=== PATIENT | female | born 1970 | race Caucasian/White ===

== ENCOUNTER 2018-12-09 13:08 | Emergency (ER) | payer SELFPAY ==
[2018-12-09] MEDS ORDERED: Dexamethasone 10 MG/ML VIAL ONE (13:25)
--- NOTE | 2018-12-09 13:40 | RAD ---
XR Chest 1 View HISTORY: Cough, shortness of breath COMPARISON: None FINDINGS: The heart size is normal. The lungs are well expanded without focal areas of consolidation, pneumothorax or pleural effusions. IMPRESSION: No radiographic evidence of acute cardiopulmonary process.
[2018-12-09] MEDS ORDERED: Ketorolac Tromethamine 60 MG/2 ML VIAL ONE (14:26)
== END 2018-12-09 15:02 | disposition home or self-care (01) ==
LOC: ERS 13:08
DX: J45.901 Unspecified asthma with (acute) exacerbation (principal); I10 Essential (primary) hypertension; K31.84 Gastroparesis; G62.9 Polyneuropathy, unspecified; F17.210 Nicotine dependence, cigarettes, uncomplicated; F41.9 Anxiety disorder, unspecified; F32.9 Major depressive disorder, single episode, unspecified; Z79.899 Other long term (current) drug therapy
CPT/HCPCS: 71045; 94640; 96372; J1100; J1885; J7620

== ENCOUNTER 2019-03-24 08:30 | Emergency (ER) | payer OTHER, BC ==
[2019-03-24 08:59] LABS: #Basophils 0.1 thou/uL (0.0-0.2); #Eosinphils 0.3 thou/uL (0.0-0.7); #Lymphocytes 4.3 thou/uL (1.20-3.40); #Monocytes 0.8 thou/uL (0.11-0.59); #Neutrophils 6.1 thou/uL (1.40-6.50); %Basophils 0.7 % (0.0-1.0); %Eosinophils 2.8 % (0.0-10.0); %Neutrophils 52.5 % (42.0-75.0); Hemoglobin 16.3 g/dL (12.0-16.0); Mean Corpuscular HGB CONC 33.7 g/dL (32.0-36.0); Mean Corpuscular Hemoglobin 28.4 pg (27.0-31.0); Mean Corpuscular Volume 84.2 fL (78.0-98.0); Mean Platelet Volume 7.1 fL (7.4-10.4); Platelet Count 377 thou/uL (130-400); RBC Distribution Width 12.4 % (11.5-14.5); Red Blood Cell (RBC) Count 5.74 mill/uL (4.20-5.40); White Blood Cell (WBC) Count 11.7 thou/uL (4.8-10.8)
[2019-03-24] MEDS ORDERED: predniSONE 20 MG TAB ONE (09:05)
--- NOTE | 2019-03-24 09:18 | RAD ---
XR Chest 1 View Portable HISTORY: Shortness of breath COMPARISON: 12/09/2018 FINDINGS: The heart size is normal. The lungs are well expanded without focal areas of consolidation, pneumothorax or pleural effusions. IMPRESSION: No radiographic evidence of acute cardiopulmonary process.
[2019-03-24 09:32] LABS: ALT (SGPT) 35 U/L (8-55); AST (SGOT) 33 U/L (5-34); Albumin 4.2 g/dL (3.5-5.0); Alkaline Phosphatase 92 U/L (40-110); Anion Gap 10 mmol/L (10-20); BUN (Urea Nitrogen) 12 mg/dL (7.0-18.7); Bilirubin, Total 0.8 mg/dL (0.2-1.2); Calc. Creatinine Clearance 0 mL/min (70-130); Calcium 9.5 mg/dL (7.8-10.44); Carbon Dioxide 28 mmol/L (22-29); Chloride 100 mmol/L (98-107); Estimated GFR-MDRD 65; Globulin 3.7 g/dL (2.4-3.5); Glucose 115 mg/dL (70-105); Potassium 3.4 mmol/L (3.5-5.1); Protein, Total 7.9 g/dL (6.0-8.3); Sodium 135 mmol/L (136-145)
[2019-03-24] MEDS ORDERED: Acetaminophen 500 MG TAB ONE ×2 (10:24→10:25)
[2019-03-24] MEDS ORDERED: Meclizine HCl 25 MG TAB ONE (10:24)
[2019-03-24 10:30] LABS: Actual Bicarbonate (HCO3a) 22.6 mEq/L (22-28); Analyzer IN Cardio ER; Base Excess (BEa) -0.7 mEq/L (-2.0 to +3.0); CO2 Tension 33.7 mmHg (35.0-45.0); Calcium, Ionized 1.15 mmol/L (1.12-1.30); Carboxyhemoglobin (COHb) 3.6 gm% (0.0-3.0); Hemoglobin (Hb) 15.6 g/dL (12.0-16.0); O2 Tension (PaO2) 63.2 mmHg (80.0-100.0); Potassium - ABG Lab 3.47 mmol/L (3.70-5.30); pH, Arterial 7.44 (7.35-7.45)
[2019-03-24 10:34] LABS: ALV-art Gradient 44.405 (0-20); Puncture Site RRAD
[2019-03-24 12:57] LABS: Troponin I 0.015 ng/mL (< 0.028)
--- NOTE | 2019-03-26 07:33 | CT ---
CT Brain WO Con: 03/24/2019 10:37 AM CLINICAL HISTORY: Headache. COMPARISON: None. FINDINGS: Hemorrhage: None. Ventricular system: Normal in size and morphology for the patient's age. Cerebral parenchyma: Normal Midline shift: None. Mass: No mass effect. Calvarium: Normal. Visualized Paranasal sinuses: Clear. IMPRESSION: No acute intracranial abnormalities.
== END 2019-03-24 13:39 | disposition home or self-care (01) ==
LOC: ERS 08:30
DX: J20.9 Acute bronchitis, unspecified (principal); I10 Essential (primary) hypertension; F17.210 Nicotine dependence, cigarettes, uncomplicated; F41.9 Anxiety disorder, unspecified; F32.9 Major depressive disorder, single episode, unspecified; Z79.899 Other long term (current) drug therapy
CPT/HCPCS: 36415; 70450; 71045; 80053; 82805; 83880; 84484; 85025; 93005; 94640; J7512; J7620; J8597

== ENCOUNTER 2019-05-04 11:33 | Emergency (ER) | payer BC, OTHER ==
--- NOTE | 2019-05-04 12:54 | CT ---
CT LUMBAR SPINE WITHOUT CONTRAST: HISTORY: Back pain. Sudden onset. Previous fusion. COMPARISON: None. FINDINGS: Five lumbar-type vertebrae. Lumbar spine vertebral body height is maintained. There is no lumbar spin e fracture. Unilateral left-sided transpedicular screw at L5-S1 without evidence of perihardware lucency. No spon dylolisthesis or spondylolysis. Disc prosthesis at L5-S1. Incompletely evaluated cyst in the mid right renal cortex measuring 2.3 cm. Bilaterally no obstructiv e uropathy. No retroperitoneal mass, lymphadenopathy or hematoma. Visualized aorta is unremarkable. Appropriate attenuation of the paraspinal muscles. Hypodensities in the left and right adnexa, incompletely evaluated. Bilateral complex ovarian cysts m ay be present. Visualized bony pelvis and sacrum are preserved. Sacral ala are preserved. Presacral fat is preserved . Limited evaluation the contents of the central spinal canal and neural foramina due to technique. T12-L1: No significant canal stenosis or significant neural foraminal narrowing. L1-L2: No significant central canal stenosis or significant neural foraminal narrowing. L2-L3: No significant central canal stenosis or significant neural foraminal narrowing. L3-L4: Broad-based disc bulge, ligament flavum thickening and facet hypertrophy result in mild centra l canal stenosis. Bilaterally, neural foramina are patent. L4-L5: Broad-based disc bulge with a central disc herniation. Ligament flavum thickening and facet hy pertrophy is identified. Moderate central canal stenosis. Mild bilateral foraminal narrowing predominantly due to disc material. L5-S1: Disc prosthesis. Broad-based osteophyte ridge with a small left subarticular component. Osteop hyte ridge does appear to abut but does not obscure the traversing left S1 nerve roots. Mild bilateral foraminal narrowing. IMPRESSION: 1. No fracture. 2. Uncomplicated lumbar fusion as described above. 3. Degenerative changes of lumbar spine as described above. Transcribed Date/Time: 05/04/2019 1:11 PM
[2019-05-04] MEDS ORDERED: Acetaminophen 500 MG TAB ONE (13:01)
[2019-05-04] MEDS ORDERED: Metoclopramide HCl 10 MG/2 ML VIAL ONE (13:02)
[2019-05-04] MEDS ORDERED: diphenhydrAMINE 50 MG/ML VIAL ONE (13:02)
[2019-05-04] MEDS ORDERED: Ketorolac Tromethamine 30 MG/ML VIAL ONE (13:02)
== END 2019-05-04 14:26 | disposition home or self-care (01) ==
LOC: ERS 11:33
DX: M54.16 Radiculopathy, lumbar region (principal); I10 Essential (primary) hypertension; K31.84 Gastroparesis; G62.9 Polyneuropathy, unspecified; F41.9 Anxiety disorder, unspecified; F32.9 Major depressive disorder, single episode, unspecified; F17.210 Nicotine dependence, cigarettes, uncomplicated; Z79.899 Other long term (current) drug therapy
CPT/HCPCS: 72131; 96365; 96375; J1200; J1885; J2765

== ENCOUNTER 2020-05-24 08:51 | Emergency (ER) | payer OTHER ==
--- NOTE | 2020-05-24 09:52 | CT ---
Head CT without contrast 05/24/2020: COMPARISON: 03/24/2019 HISTORY: Headache, fall 2 weeks ago TECHNIQUE: Axial CT imaging at 2.5 mm intervals from vertex through skull base without contrast FINDINGS: The visualized paranasal sinuses and mastoid air cells are well-aerated. No displaced calvarial fracture, intracranial hemorrhage, midline shift, or mass effect. IMPRESSION: No intracranial hemorrhage or displaced calvarial fracture.
[2020-05-24] MEDS ORDERED: Acetaminophen 500 MG TAB ONE (10:08)
[2020-05-24] MEDS ORDERED: Magnesium 2 GM/50 ML BAG (IN WATER) ONE (10:08)
[2020-05-24] MEDS ORDERED: Ketorolac Tromethamine 30 MG/ML VIAL ONE (11:02)
== END 2020-05-24 12:20 | disposition home or self-care (01) ==
LOC: ERS 08:51
DX: R51.9 Headache, unspecified (principal); I10 Essential (primary) hypertension; F17.210 Nicotine dependence, cigarettes, uncomplicated; Z79.899 Other long term (current) drug therapy
CPT/HCPCS: 70450; 96374; 96375; J1885; J3475